=== PATIENT | female | born 1980 | race Two or more races ===

== ENCOUNTER 2022-08-28 03:52 | Day surgery (SDC) | payer OTHER ==
[2022-08-26 08:53] VITALS: BMI 29.0
[2022-08-28] MEDS ORDERED: LIDOCAINE HCL/PF 2% SDV 5ML VIAL ONE (10:41)
[2022-08-28] MEDS ORDERED: ROCURONIUM BROMIDE 50 MG/5 ML SYRINGE ONE (10:41)
[2022-08-28] MEDS ORDERED: PROPOFOL 20 ML ONE (10:41)
[2022-08-28] MEDS ORDERED: MIDAZOLAM HCL 2 MG/2 ML SINGLE DOSE VIAL ONE (10:42)
[2022-08-28] MEDS ORDERED: ceFAZolin SODIUM 1 GM VIAL ONE (10:58)
[2022-08-28] MEDS ORDERED: ceFAZolin SODIUM 1 GM VIAL IVPB ONE (11:00)
[2022-08-28] MEDS ORDERED: DEXAMETHASONE SOD PHOSPHATE 4 MG/1 ML VIAL ONE (11:02)
[2022-08-28] MEDS ORDERED: ONDANSETRON 4 MG/2 ML VIAL ONE (11:02)
[2022-08-28] MEDS ORDERED: METOPROLOL TARTRATE 5 MG/5 ML VIAL ONE (11:10)
[2022-08-28] MEDS ORDERED: GLYCOPYRROLATE 0.2 MG/1 ML VIAL ONE (11:23)
[2022-08-28] MEDS ORDERED: NEOSTIGMINE METHYLSULFATE 0.5 MG/1 ML - 10 ML MDV ONE (11:24)
[2022-08-28] MEDS ORDERED: hydrALAZINE HCL 20 MG/ML VIAL ONE (11:25)
[2022-08-28] MEDS ORDERED: KETOROLAC TROMETHAMINE 30 MG/1 ML VIAL IVPUSH PRN (11:53)
[2022-08-28] MEDS ORDERED: oxyCODONE HCL 5 MG TABLET PO PRN (11:53)
[2022-08-28] MEDS ORDERED: ONDANSETRON 4 MG/2 ML VIAL IVPUSH PRN (11:53)
[2022-08-28] MEDS ORDERED: ACETAMINOPHEN 1000 MG/100 ML BAG IVPB PRN (11:54)
[2022-08-28] MEDS ORDERED: LACTATED RINGERS SOLUTION 1,000 ML IV SCH (12:00)
[2022-08-28] MEDS ORDERED: KETOROLAC TROMETHAMINE 30 MG/1 ML VIAL ONE (12:25)
[2022-08-28 15:37] VITALS: RESP 16
[2022-08-28 17:01] VITALS: BP 130/85; PULSE 80; TEMP 98.7
== END 2022-08-28 15:10 | disposition home or self-care (01) ==
LOC: JASU-SURG 03:52
PROVIDERS: ATTEND Otolaryngology
PROC: 0CTPXZZ Resection of Tonsils, External Approach (ICD-10-PCS; principal; 2022-08-28 11:00)
DX: J35.1 Hypertrophy of tonsils (principal); G47.33 Obstructive sleep apnea (adult) (pediatric)
CPT/HCPCS: 81025; 94760